=== PATIENT | male | born 1965 | race Caucasian/White ===

== ENCOUNTER 2018-06-09 18:30 | Inpatient (IN) ==
[2018-06-09] MEDS ORDERED: Aluminum/Magnesium/Simethacone Susp 30 ML UDC PO PRN (22:35)
[2018-06-09] MEDS ORDERED: Acetaminophen 325 MG Tablet PO PRN (22:35)
[2018-06-10 13:09] LABS: Anion Gap 6 meq/L (5-15); Blood Urea Nitrogen 14 mg/dL (7-18); Calcium 9.3 mg/dL (8.5-10.1); Carbon Dioxide 30.2 meq/L (21.0-32.0); Chloride 107 meq/L (98-107); Cholesterol 228 mg/dL (120-200); Glomerular Filtration Rate Greater Than 89 mL/min (>89); Glucose,Random 98 mg/dL (74-106); Potassium 4.1 meq/L (3.5-5.1); Sodium 143 meq/L (136-145); Triglycerides 540 mg/dL (42-150)
[2018-06-10 13:13] LABS: Chol/HDL Ratio 7.86 Ratio
--- NOTE | 2018-06-10 14:51 | P.HPPSY ---
Provisional Diagnosis Admission Date: June 09, 2018 19:15 [place] I.: Adjustment disorder with disturbance of conduct, bipolar disorder Competence Certification of Person's Competence To Provide Express and Informed Consent I have personally examined Bill Parson, a person being served at [facility] on, June 10, 2018 1441. Express and informed consent means consent voluntarily given in writing, by a competent person, after sufficient explanation and disclosure of the subject matter involved to enable the person to make a knowing and willful decision without any element of force, fraud, deceit, duress, or other form of constraint or coercion. This person is 18 years of age or older, is not now known to be incompetent to consent to treatment with a guardian advocate, and does not have a health care surrogate or proxy currently making medical treatment decisions. I have found this person to be one of the following: [x] Competent to provide express and informed consent, as defined above, for voluntary admission to this facility and is competent to provide express and informed consent for treatment. He/she has the consistent capacity to make well reasoned, willful, and knowing decisions concerning his or her medical or mental health treatment. The person fully and consistently understands the purpose of the admission for examination/placement and is fully capable of personally exercising all rights [place] Incompetent to provide express and informed consent to voluntary admission, and this is incompetent to provide express and informed consent to treatment. The person must be transferred to involuntary status and a petition for a guardian advocate filed with the Circuit Court. [] Refusing to provide express and informed consent to voluntary admission but is competent to provide express and informed consent for treatment. The person must be discharged or transferred to involuntary status. Form shall be completed within 24 hours of a person's arrival at the receiving facility and filed in the clinical record of each person: 1. Admitted on a voluntary basis 2. Permitted to provide express and informed consent to his/her own treatment 3. Allowed to transfer from involuntary to voluntary status 4. Prior to permitting a person to consent to his or her own treatment after having been previously found incompetent to consent to treatment. History of Present Illness Capacity: Has capacity History of Present Illness: The patient is a 52-year-old man, domiciled with his mother [place], single, unemployed, supported by disability, with psychiatric history of depression, PTSD, bipolar disorder, no previous psychiatric hospitalizations, he was seen here on the [place] act in 2016 in the ER, but he was released, documentation review, he is on Depakote 500 mg twice daily, Trileptal 600 mg at bedtime, Ambien 10 mg at bedtime, Abilify 5 mg, medical history of TBI, who was transferred to [place] from [facility] on the [place] [facility] due to aggressive behavior with his mother and suicide ideation. EMR reviewed. The patient was seen with nurse in charge. On my psychiatric evaluation I find a patient that is calm, cooperative, very pleasant. The patient reports that he feels embarrassed of his actions yesterday. He says that his mother is 86 years old, and sometimes is very difficult for them to understand each other. However, he admits that he was under control and became quite verbally aggressive. At this moment the patient reports good mood, he says that his mood is 8/10. Denies depression, denies anxiety, denies bhaskar and psychosis. The patient is logical , coherent and relevant. Future oriented, he says that his plan is to go to live in [place] his kids in the distant future. Patient reports good compliance of medications, no significant side effects. During his stay in the psychiatric unit the patient has been calm, cooperative, compliant medications. He is oriented 3. - Inpatient Certification I certify that the inpatient services were ordered in accordance with Medicare regulations governing the order. This includes certification that hospital inpatient services are reasonable and necessary and in the case of services not specified as inpatient-only under 42 CFR 419.22(n), that they are appropriately provided as inpatient services in accordance to with the 2-midnight benchmark under 43 CFR 412.3(e) I certify that inpatient psychiatric hospital services are medically necessary. Evaluation and treatment and/or diagnostic testing are expected to improve the patient's condition. The patient needs on a daily basis, active treatment furnished directly by or requiring the supervision of inpatient psychiatric facility personnel. Review of Systems Constitutional: Denies anorexia, Denies body ache(s), Denies chills, Denies daytime sleepiness, Denies excessive sweating, Denies fatigue, Denies fever(s), Denies headache(s), Denies increased appetite, Denies lack of energy, Denies malaise, Denies night sweats, Denies weakness, Denies weight gain, Denies weight loss, Denies other Eyes: Denies blind spots, Denies blurry vision, Denies bulging eyes, Denies change in vision, Denies double vision, Denies discharge, Denies dry eyes, Denies floaters, Denies irritation, Denies itchy eyes, Denies loss of vision, Denies pain, Denies requires corrective lenses, Denies sensitivity to light, Denies other Ears, Nose, Mouth, and Throat: Denies abnormal hearing, Denies bleeding gums, Denies bad breath, Denies change in voice, Denies dental pain, Denies difficulty swallowing, Denies dizziness, Denies dry mouth, Denies ear discharge , Denies ear pain, Denies facial pain, Denies headache(s), Denies hearing loss, Denies hoarseness, Denies lip swelling, Denies nosebleed, Denies mouth lesions, Denies mouth pain, Denies nasal congestion, Denies nasal discharge, Denies nasal obstruction, Denies nasal trauma, Denies neck lump, Denies neck pain, Denies nose pain, Denies pain with swallowing, Denies poor balance, Denies post nasal drip, Denies ringing in the ears, Denies sinus pain, Denies sinus pressure , Denies sore throat, Denies throat swelling, Denies tongue swelling, Denies other Cardiovascular: Denies chest pain, Denies chest pain at rest, Denies chest pain with activity, Denies excessive sweating, Denies fainting, Denies fast heart rate, Denies foot swelling, Denies generalized swelling, Denies irregular heart rhythm, Denies leg pain with activity, Denies leg sores, Denies leg swelling, Denies lightheadedness, Denies radiating jaw, neck or arm pain, Denies rapid, pounding, or irregular heartbeat, Denies shortness of breath, Denies shortness of breath with activity, Denies shortness of breath when lying down, Denies shortness of breath causing sudden awakening, Denies slow heart rate, Denies other Respiratory: Denies change in phlegm color, Denies chest congestion, Denies cough, Denies coughing up blood, Denies excessive phlegm production, Denies pain on inspiration, Denies pain with cough, Denies shortness of breath, Denies shortness of breath with activity, Denies snoring, Denies stridor, Denies wheezing, Denies other Gastrointestinal: Denies abdominal pain, Denies belching, Denies black, tarry stools, Denies bloating, Denies bright, red blood in stools, Denies change in bowel habits, Denies constant urge to pass stool, Denies change in stools, Denies coffee ground vomit, Denies constipation, Denies cramping, Denies difficulty swallowing, Denies excessive passing of gas, Denies feeling full early, Denies heartburn, Denies incontinent of stools, Denies loose stools, Denies nausea, Denies pain with swallowing, Denies vomiting, Denies vomiting blood, Denies other Genitourinary: Denies blood in semen, Denies blood in urine, Denies decreased urination, Denies difficulty urinating, Denies difficulty with ejaculations, Denies erectile dysfunction, Denies genital lesions, Denies genital pain, Denies painful urination, Denies side pain, Denies frequent nighttime urination , Denies painful ejaculations, Denies penile discharge, Denies scrotal swelling , Denies testicle lump, Denies testicle pain, Denies urinary frequency, Denies urinary hesitancy, Denies urinary incontinence, Denies urinary urgency, Denies other Musculoskeletal: Denies abnormal walking, Denies back pain, Denies body aches, Denies decreased muscle mass, Denies deformity, Denies joint pain, Denies joint swelling, Denies limited joint movement, Denies loss of height, Denies muscle cramps, Denies muscle weakness, Denies neck pain, Denies numbness, Denies radiating pain into limb, Denies stiffness, Denies tingling, Denies other Skin/Breast: Denies acne, Denies bleeding lesions, Denies boil, Denies breast swelling, Denies breast skin changes, Denies breast pain, Denies breast lump, Denies change in breast shape, Denies change in hair, Denies change in skin color, Denies changing lesions, Denies dry skin, Denies excessive hair growth, Denies hair loss, Denies itching, Denies lesions, Denies nail changes, Denies new lesions, Denies nipple discharge, Denies non-healing lesions, Denies redness , Denies sensitivity to light, Denies rash, Denies skin pain, Denies skin ulcer , Denies sores, Denies stretch brooks, Denies unusual bruising, Denies wounds, Denies yellowing of the skin, Denies other Neurologic: Denies abnormal hearing, Denies abnormal movements, Denies abnormal speech, Denies abnormal walking, Denies behavioral changes, Denies burning sensations, Denies confusion, Denies dizziness, Denies fainting, Denies frequent falls, Denies headache(s), Denies lack of coordination, Denies localized weakness, Denies loss of vision, Denies memory loss, Denies numbness, Denies other visual disturbances, Denies radiating pain, Denies restless legs, Denies convulsions, Denies seizure-like activity, Denies sensory deficit, Denies tingling, Denies tingling/numbness/burning sensations, Denies tremor(s), Denies unsteadiness, Denies weakness, Denies other Psychiatric: Denies abnormal sleep pattern, Denies anxiety, Denies behavioral changes, Denies change in appetite, Denies change in sex drive, Denies confusion , Denies depression, Denies difficulty concentrating, Denies hearing things others do not hear, Denies hopelessness, Denies irritability, Denies lack of enjoyment, Denies memory loss, Denies mood swings, Denies panic attacks, Denies paranoia, Denies seeing things others do not see, Denies sensing things others do not sense, Denies tactile hallucinations, Denies thoughts of hurting/killing others, Denies thoughts of hurting/killing yourself, Denies other PMFSH - History History Provided By: Patient, Medical Record - Tobacco History Second Hand Smoke Exposure: No Tobacco Use In Past 30 Days: Yes Smoking Status: Current every day smoker Tobacco Type: Cigarettes - Alcohol History How Often Do You Have a Drink Containing Alcohol: Never - Substance Use History Substance History: Active Abuse - Substance Use Type Marijuana Status: Active Route Used: Inhalation Reason for Use: Calm Down - Travel History Recent Travel in the [facility] Within the Last 8 Weeks: No Recent Travel Out of the Country Within the Last 8 Weeks: No - Immunization History Tetanus Immunization: >5 Years Hx Influenza Vaccine This Season: No Medications and Allergies Active Medications: Active Medications Acetaminophen (Tylenol) 650 mg PO Q4H PRN PRN Reason: Pain 1-5 or Temp >101F Al Hydrox/Mg Hydrox/Simethicone (Mag-Al Plus Susp Liq) 30 ml PO Q6H PRN PRN Reason: DYSPEPSIA Al Hydroxide/Mg Hydroxide (Milk Of Magnesia Liq) 30 ml PO Q12H PRN PRN Reason: Mild Constipation Aripiprazole (Abilify) 5 mg PO DAILY [facility] Divalproex Sodium (Depakote Er) 500 mg PO QID [facility] Lorazepam (Ativan) 1 mg PO Q6H PRN PRN Reason: MODERATE TO SEVERE ANXIETY Lorazepam (Ativan Inj) 1 mg IM Q6H PRN PRN Reason: MODERATE TO SEVERE ANXIETY Nicotine (Habitrol 21 Mg Patch.24 Hr) 1 patch T-DERMAL DAILY [facility] Last Admin: 06/10/18 08:58 Dose: Not Given Non-Formulary Medication (Escitalopram Oxalate) 20 mg PO DAILY [facility] Non-Formulary Medication (Zolpidem) 10 mg PO HS [facility] Oxcarbazepine (Trileptal) 600 mg PO [facility] Allergies Allergy/AdvReac Type Severity Reaction Status Date / Time No Known Allergies Allergy Uncoded 06/09/16 21:19 Home Medications Medication Instructions Recorded Confirmed Type albuterol sulfate [Ventolin HFA] 2 puff INHALATION Q6H PRN 06/10/18 06/10/18 History aripiprazole [Abilify] 5 mg PO DAILY 06/10/18 History divalproex 500 mg PO QID 06/10/18 06/10/18 History escitalopram oxalate 20 mg PO DAILY 06/10/18 06/10/18 History oxcarbazepine [Trileptal] 600 mg PO HS 06/10/18 06/10/18 History trazodone 50 mg PO HS 06/10/18 06/10/18 History zolpidem 1 mg PO HS 06/10/18 06/10/18 History Results - Labs CBC & Chem 7: 06/10/18 11:40 Labs: Laboratory Results - last 24 hr 06/10/18 11:40 Sodium 143 Potassium 4.1 Chloride 107 Carbon Dioxide 30.2 Anion Gap 6 BUN 14 Creatinine 0.83 Estimated GFR Greater than 89 Random Glucose 98 Calcium 9.3 Triglycerides 540 H Cholesterol 228 H LDL Cholesterol, Calc HDL Cholesterol 29.0 L Cholesterol/HDL Ratio 7.86 Exam Vital signs: Vital Signs 06/09/18 19:50 06/10/18 04:33 06/10/18 06:31 Temperature 98.1 F 98.4 F Pulse Rate 76 Respiratory Rate 18 18 Blood Pressure 136/78 123/70 Pulse Oximetry 94 L 96 Intake & Output 06/09/18 06/10/18 06/10/18 18:59 06:59 18:59 Weight 109 kg Other: Weight On Admission 109 kg Narrative: No psychomotor agitation retardation, no EPS, - Constitutional no acute distress - Routine HEENT Exam Head: Present: normocephalic Eye: Present: EOMI, PERRL, normal accommodation ENT: Present: mucous membranes moist Mental Status Examination Appearance: Appropriate Consciousness: Alert Orientation: x4 Motor Activity: Normal gait Speech: Unremarkable Language: Adequate Fund of Knowledge: Adequate Attention and Concentration: Adequate Memory: Unremarkable Mood: Appropriate Affect: Appropriate Thought Process & Associations: Intact Thought Content: Appropriate Hallucination Type: None Delusion Type: None Suicidal Ideation: No Suicidal Plan: No Suicidal Intention: No Homicidal Ideation: No Homicidal Plan: No Homicidal Intention: No Judgment: Impulsive Assessment and Plan - Assessment (1) Adjustment disorder with disturbance of conduct Code(s): F43.24 - Adjustment disorder with disturbance of conduct Status: Acute (2) Adjustment disorder with disturbance of conduct Code(s): F43.24 - Adjustment disorder with disturbance of conduct Status: Acute - Plan Plan: Estimated LOS: [] days On psychiatric evaluation today the patient does not present any evidence of acute depression, anxiety, psychosis or bhaskar. The patient denies suicidal and homicidal ideation, he denies visual and auditory hallucinations. The patient has history of poor impulse control, bipolar disorder, cognitive impairment due to TBI, previous aggressive behavior at home. Collateral information could not be contacted during this evaluation. The patient will be kept in the psychiatric unit for longitudinal observation of mood and behavior and mental collateral information is reached. I will restart his psychotropic regimen, Depakote 500 mg twice daily, Trileptal 600 mg at bedtime, Ambien 10 mg at bedtime, Abilify 5 mg daily. Breath supportive psychotherapy provided. 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 Patient will sign voluntary admission. Justification for Continued Inpatient Stay: Patient will be admitted in psychiatry.
[2018-06-10] MEDS: Divalproex 500 MG DR Tablet PO SCH ×2 (17:35→20:48)
[2018-06-10] MEDS: LORazepam 1 MG Tablet PO PRN ×2 (17:35→20:48)
[2018-06-10] MEDS: OXcarbazepine 600 MG Tablet PO SCH (20:48)
[2018-06-11 01:26] VITALS: O2SAT 95
[2018-06-11] MEDS: Divalproex 500 MG DR Tablet PO SCH ×4 (10:38→21:13)
[2018-06-11] MEDS: ARIPiprazole 5 MG Tablet PO SCH (10:38)
[2018-06-11] MEDS: LORazepam 1 MG Tablet PO PRN ×2 (11:36→21:13)
--- NOTE | 2018-06-11 16:40 | P.PNPSY ---
Subjective Remarks: Patient seen for follow, chart reviewed. Discussion nursing staff reported the patient with no behavioral issues, was noted to be yelling in his room on the phone earlier today. Patient found sitting in hospital bed noted B, cooperative. Patient states that he has spoken to his mother today which she states went well and that his sleep is "so-so". 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 Patient states that events that led to his hospitalization where his argument with his sister which he had request to be brought to the hospital was reminded about the [place] act stating aggressive behavior with mother and suicide ideations he then stated that he does remember me perhaps having made any suicidal statements during his argument with his sister and also recalls having thrown a speaker on the floor after his mom had asked him to turn it off early in the morning when he was playing loud music on it. Patient states that he has no intention of hurting himself or anyone else and that he says "a lot of things I do not mean". Patient denies any SI, HI, AVH or delusions. Patient states that he is feeling disappointed in himself for being here in the hospital for these reasons and states that he is planning on returning home. Nursing staff later reported that sister had expressed to nursing staff that the patient now allowed to return home. Review of Systems All other systems reviewed negative except as stated in HPI Mental Status Examination Appearance: Appropriate Consciousness: Alert Orientation: x4 Motor Activity: Normal gait Speech: Unremarkable Language: Adequate Fund of Knowledge: Adequate Attention and Concentration: Adequate Memory: Unremarkable Mood: Appropriate Affect: Appropriate Thought Process & Associations: Intact Thought Content: Appropriate Hallucination Type: None Delusion Type: None Suicidal Ideation: No Suicidal Plan: No Suicidal Intention: No Homicidal Ideation: No Homicidal Plan: No Homicidal Intention: No Insight: Fair Judgment: Impulsive Assessment and Plan - Assessment (1) Adjustment disorder with disturbance of conduct Code(s): F43.24 - Adjustment disorder with disturbance of conduct Status: Acute - Plan Plan: Patient with no behavioral services since admission, had try to minimize events prior to his hospitalization but states feeling ready to return back home. He denies any SI, HI, AVH or delusions. We will order valproic acid level tomorrow a.m., we will continue current treatment. We will continue to monitor mood and behavior. Treatment team will verify with the patient cannot return home as patient's sister had expressed the patient was not able to return home. Discharge planning in progress. Justification for Continued Inpatient Stay: At risk for further decompensation if at lower level of care
[2018-06-11 17:59] VITALS: BP 141/70; PULSE 95; RESP 17; TEMP 97.9
[2018-06-11] MEDS: OXcarbazepine 600 MG Tablet PO SCH (21:13)
[2018-06-11 21:58] LABS: Hemoglobin A1c 5.5 % (4.3-6.0)
[2018-06-12] MEDS: Divalproex 500 MG DR Tablet PO SCH (09:40)
[2018-06-12] MEDS: ARIPiprazole 5 MG Tablet PO SCH (09:40)
--- NOTE | 2018-06-12 13:59 | P.DSPSY ---
Psychiatry Discharge Summary Inpatient Psychiatric care?: Yes Advance Directives: No Mental Health Advance Directive: No Health Care Proxy: No - Admission Admission Date: June 09, 2018 19:15 - Admission Diagnosis (1) Adjustment disorder with disturbance of conduct Code(s): F43.24 - Adjustment disorder with disturbance of conduct Brief History: The patient is a 52-year-old man, domiciled with his mother Lexus Lozano, single, unemployed, supported by disability, with psychiatric history of depression, PTSD, bipolar disorder, no previous psychiatric hospitalizations, he was seen here on the [employer] act in 2015 in the ER, but he was released, documentation review, he is on Depakote 500 mg twice daily, Trileptal 600 mg at bedtime, Ambien 10 mg at bedtime, Abilify 5 mg, medical history of TBI, who was transferred to [place] from [facility] on the [address] at due to aggressive behavior with his mother and suicide ideation. EMR reviewed. The patient was seen with nurse in charge. On my psychiatric evaluation I find a patient that is calm, cooperative, very pleasant. The patient reports that he feels embarrassed of his actions yesterday. He says that his mother is 86 years old, and sometimes is very difficult for them to understand each other. However, he admits that he was under control and became quite verbally aggressive. At this moment the patient reports good mood, he says that his mood is 8/10. Denies depression, denies anxiety, denies bhaskar and psychosis. The patient is logical , coherent and relevant. Future oriented, he says that his plan is to go to live in [place] his kids in the distant future. Patient reports good compliance of medications, no significant side effects. During his stay in the psychiatric unit the patient has been calm, cooperative, compliant medications. He is oriented 3. Tobacco Use In Past 30 Days: Yes How Often Do You Have a Drink Containing Alcohol: Never Hospital Course: The patient is a 52-year-old man, domiciled with his mother Lexus Lozano, single, unemployed, supported by disability, with psychiatric history of depression, PTSD, bipolar disorder, no previous psychiatric hospitalizations, he was seen here on the [employer] act in 2015 in the ER, but he was released, documentation review, he is on Depakote 500 mg four times daily, Trileptal 600 mg at bedtime, Ambien 10 mg at bedtime, Abilify 5 mg, medical history of TBI, who was transferred to [place] from [facility] on the [address] at due to aggressive behavior with his mother and suicide ideation which patient was admitted to the inpatient psychiatry unit for further evaluation and management. Patient was continued on Depakote 500 mg four times daily, Trileptal 600 mg at bedtime, Ambien 10 mg at bedtime, Abilify 5 mg, which he tolerated well with minimal side effects. Patient was admitted to a locked, inpatient psychiatric unit. Appropriate precautions were in place throughout patient's hospital stay. Patient was seen and examined on the unit by psychiatry. Psychotropic medications were adjusted. There was no evidence of any suicidality or homicidality on the inpatient unit. Patient's mood improved with the benefit of psychopharmacologic treatment and had no behavioral disturbance since admission. Counselor has arranged for follow up appointments for continuity of care. On the day of discharge: Patient seen and examined; chart reviewed. Case discussed with nurse and counselor. No behavioral issues overnight. On my examination today, the patient is agreeable to a discharge to his mothers home as well as agreed by his mother when contacted over the phone. He denies any suicidal or homicidal ideation, intent or plan on direct questioning and contracts for safety. I can elicit no mood symptoms. He denies any audiovisual hallucinations. No delusional material verbalized today. Denies any side effects from medications and has an understanding of medication regimen and indication. No physical complaints. Suicide and violence risk assessment on day of discharge both suggest lower imminent risk, and the patient's level of function is adequate for planned level of outpatient care. Patient has maximized benefit from this inpatient psychiatric hospital stay and will be discharged with follow-up as arranged by counselor. Patient advised to return to psychiatric emergency room for any concerning psychiatric symptoms. Patient agrees with plan. - Discharge Discharge Date: 06/12/18 - Discharge Diagnosis (1) Adjustment disorder with disturbance of conduct Code(s): F43.24 - Adjustment disorder with disturbance of conduct Status: Acute Discharge Disposition: Home - Discharge Instructions Discharge Diet: Heart Healthy Diet Activities You Can Perform: Regular- No Restrictions - Discharge Time > 30 minutes Mental Status Examination Appearance: Appropriate Consciousness: Alert Orientation: x4 Motor Activity: Normal gait Speech: Unremarkable Language: Adequate Fund of Knowledge: Adequate Attention and Concentration: Adequate Memory: Unremarkable Mood: Appropriate Affect: Appropriate Thought Process & Associations: Intact Thought Content: Appropriate Hallucination Type: None Delusion Type: None Suicidal Ideation: No Suicidal Plan: No Suicidal Intention: No Homicidal Ideation: No Homicidal Plan: No Homicidal Intention: No Insight: Fair Judgment: Impulsive Discharge/Advance Care Plan - Results Vital Signs: Last Vital Signs Temp 97.9 F 06/11/18 17:49 Pulse 95 H 06/11/18 17:49 Resp 17 06/11/18 17:49 BP 141/70 H 06/11/18 17:49 Pulse Ox 95 06/11/18 17:49 Lab Results: Abnormal Lab Results 06/10/18 06/12/18 11:48 10:30 Hemoglobin A1c 5.5 Valproic Acid 64 Laboratory Results Hemoglobin A1c 5.5 % (4.3-6.0) 06/10/18 11:48 Triglycerides 540 mg/dL (42-150) H 06/10/18 11:40 Cholesterol 228 mg/dL (120-200) H 06/10/18 11:40 LDL Cholesterol, Calc mg/dL (0-99) 06/10/18 11:40 HDL Cholesterol 29.0 mg/dL (40.0-60.0) L 06/10/18 11:40 Valproic Acid 64 mcg/mL (50-100) 06/12/18 10:30 Summary of Procedures: none Pending Results: None - Medications Number of antipsychotic medications at discharge: 1 - Discharge Care Plan Goals to Promote Your Health: * To prevent worsening of your condition and complications * To maintain your health at the optimal level Directions to Meet Your Goals: Take your medications as prescribed Follow your dietary instruction Follow activity as directed Keep your appointments as scheduled Take your immunizations and boosters as scheduled If your symptoms worsen call your PCP, if no PCP go to Urgent Care Center or Emergency Room For 05/06 questions related to your inpatient stay or results of tests pending at discharge, please contact Dr. Gilberto Cheatham MD at Smoking is Dangerous to Your Health. Avoid second hand smoking
== END 2018-06-12 15:20 | disposition home or self-care (01) ==
LOC: H270 19:15 → H4EA 06-10 03:45
PROVIDERS: ADMIT Student in an Organized Health Care Education/Training Program; ATTEND Student in an Organized Health Care Education/Training Program
CPT/HCPCS: 80048; 80061; 80164; 83036; 94002; 94003; 94656; 94657